=== PATIENT | female | born 1995 | race Two or more races ===

== ENCOUNTER 2018-09-22 19:30 | Observation (INO) | payer MEDICAID ==
[~2018-09-22 19:30] MED LIST: PREN-96 PO
== END 2018-09-22 21:23 | disposition home or self-care (01) | DRG 566 ==
LOC: LDRP 19:30
PROVIDERS: ADMIT Obstetrics & Gynecology; ATTEND Obstetrics & Gynecology
DX: O36.5930 Maternal care for other known or suspected poor fetal growth, third trimester, not applicable or unspecified (principal); Z3A.29 29 weeks gestation of pregnancy
CPT/HCPCS: 59025; 76818; 81002; G0378

== ENCOUNTER 2018-09-25 08:40 | Observation (INO) | payer MEDICAID | END 2018-09-25 09:40 | disposition home or self-care (01) | DRG 566 | LOC: LDRP 08:40 | PROVIDERS: ADMIT Obstetrics & Gynecology; ATTEND Obstetrics & Gynecology | DX: O36.5930 Maternal care for other known or suspected poor fetal growth, third trimester, not applicable or unspecified (principal); Z3A.30 30 weeks gestation of pregnancy | CPT/HCPCS: 59025; 76818; 81002; G0378 ==

== ENCOUNTER 2018-09-29 11:37 | Observation (INO) | payer MEDICAID ==
[~2018-09-29] VITALS: Ht 160 cm; Wt 54.4 kg
[2018-09-29] MEDS ORDERED: BETAMETHASONE ACET (6MG/ML) 5ML VIAL IM ONE (12:30)
== END 2018-09-29 15:18 | disposition home or self-care (01) | DRG 566 ==
LOC: LDRP 11:37
PROVIDERS: ADMIT Obstetrics & Gynecology; ATTEND Obstetrics & Gynecology
DX: O36.5930 Maternal care for other known or suspected poor fetal growth, third trimester, not applicable or unspecified (principal); O42.913 Preterm premature rupture of membranes, unspecified as to length of time between rupture and onset of labor, third trimester; Z3A.30 30 weeks gestation of pregnancy
CPT/HCPCS: 59025; 76818; 81002; 96372; G0378; J0702

== ENCOUNTER 2018-09-30 10:15 | Observation (INO) | payer MEDICAID ==
[2018-09-30] MEDS ORDERED: BETAMETHASONE ACET (6MG/ML) 5ML VIAL IM ONE (11:15)
== END 2018-09-30 11:33 | disposition home or self-care (01) | DRG 566 ==
LOC: LDRP 10:15
PROVIDERS: ADMIT Obstetrics & Gynecology; ATTEND Obstetrics & Gynecology
DX: O62.9 Abnormality of forces of labor, unspecified (principal); Z3A.30 30 weeks gestation of pregnancy
CPT/HCPCS: 59025; 81002; 96372; G0378